=== PATIENT | male | born 2000 | race Caucasian/White ===

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

== ENCOUNTER 2021-08-31 08:29 | Outpatient (RCR) | payer OTHER, MEDICAID ==
[~2021-08-31 08:29] MED LIST changes: -OMEP40CA27 PO; +OMEP40CA6 PO
== END 2021-09-16 | disposition home or self-care (01) ==
PROVIDERS: ATTEND Nurse Practitioner Family
DX: S83.511D Sprain of anterior cruciate ligament of right knee, subsequent encounter (principal); V87.8XXD Person injured in other specified noncollision transport accidents involving motor vehicle (traffic), subsequent encounter